=== PATIENT | female | born 1925 | race Caucasian/White ===

== ENCOUNTER 2017-01-31 09:44 | Inpatient (IN) | payer MEDICARE ==
[~2017-01-31] VITALS: Ht 165.1 cm; Wt 79.6 kg
[2017-01-31] MEDS ORDERED: SODIUM CHLORIDE 0.9% 1,000 ML IV ONE ×3 (10:07→12:35)
[2017-01-31] MEDS ORDERED: METO50TA82 PO (10:17)
[2017-01-31] MEDS ORDERED: FURO40TA6 PO (10:17)
[2017-01-31] MEDS ORDERED: VENL75TA PO (10:21)
[2017-01-31] MEDS ORDERED: [UNRECOGNIZED DRUG - CODE] PO (10:21)
[2017-01-31] MEDS ORDERED: CALC0.25 PO (10:21)
[2017-01-31] MEDS ORDERED: HYDR-3240 PO (10:21)
[2017-01-31] MEDS ORDERED: ASPI-496 PO (10:21)
[2017-01-31] MEDS ORDERED: AMIO200T42 PO (10:21)
[2017-01-31] MEDS ORDERED: DONE10TA14 PO (10:21)
[2017-01-31] MEDS ORDERED: SODIUM CHLORIDE FLUSH 10ML SYR IVF ONE ×2 (10:30→11:30)
[2017-01-31] MEDS ORDERED: CALC-72 PO (10:48)
[2017-01-31] MEDS ORDERED: FLUO15CR2 TP (10:48)
[2017-01-31] MEDS ORDERED: UBID100C11 PO (10:48)
[2017-01-31] MEDS ORDERED: MULT-717 PO (10:48)
[2017-01-31] MEDS ORDERED: MIRT15TA4 PO (10:48)
[2017-01-31] MEDS ORDERED: CYAN25009 PO (10:48)
[2017-01-31] MEDS ORDERED: OXYC-302 PO (10:48)
[2017-01-31] MEDS ORDERED: GLUC500T8 PO (10:48)
[2017-01-31 11:35] LABS: ASPARTATE AMINO TRANSFERASE 26 U/L (15-37); BLOOD UREA NITROGEN 32 mg/dL (7-18)
[2017-01-31] MEDS ORDERED: DEXTROSE 4 GM TAB.CHEW PO PRN (13:00)
[2017-01-31] MEDS ORDERED: GLUCAGON 1 MG IM PRN (13:00)
[2017-01-31] MEDS ORDERED: ONDANSETRON ODT 4 MG PO PRN (13:00)
[2017-01-31] MEDS ORDERED: ONDANSETRON 2MG/ML, 2ML IVPush PRN ×3 (13:00→22:00)
[2017-01-31] MEDS ORDERED: SODIUM CHLORIDE FLUSH 10ML SYR IVF PRN (13:00)
[2017-01-31] MEDS ORDERED: DEXTROSE 50%, 50ML SYRINGE IVPush PRN (13:00)
[2017-01-31] MEDS: HEPARIN 5,000 UNITS/ML, 1ML SQ SCH ×2 (13:00→21:00)
[2017-01-31] MEDS ORDERED: POLYETHYLENE GLYCOL 17 GM PACKET PO PRN (13:00)
[2017-01-31] MEDS ORDERED: DOCUSATE 100 MG CAPSULE PO PRN (13:00)
[2017-01-31] MEDS ORDERED: BISACODYL 10 MG SUPP PR PRN (13:00)
[2017-01-31] MEDS ORDERED: ONDANSETRON 2MG/ML, 2ML ONE ×2 (13:19→18:28)
[2017-01-31] MEDS ORDERED: MORPHINE SULFATE 4 MG/ML, 1ML ONE (13:19)
[2017-01-31] MEDS: morphine SULFATE 10 MG/ML, 1ML IVPush PRN ×3 (13:24→15:51)
[2017-01-31 14:17] VITALS: BP 146/78
[2017-01-31] MEDS ORDERED: MORPHINE SULFATE 4 MG/ML, 1ML IVPush ONE (16:00)
[2017-01-31] MEDS: INSULIN ASPART 100 UNITS/ML, PEN SQ-INSULIN SCH ×2 (16:00→21:00)
[2017-01-31] MEDS ORDERED: TRANEXAMIC ACID 100 MG/ML, 10ML ONE ×2 (18:14)
[2017-01-31] MEDS ORDERED: CEFAZOLIN 1,000 MG ONE (18:28)
[2017-01-31] MEDS ORDERED: PROPOFOL 10 MG/ML, 20ML ONE (18:28)
[2017-01-31] MEDS ORDERED: FENTANYL PF 250 MCG/5ML ONE (19:07)
[2017-01-31] MEDS ORDERED: BUPIVACAINE/PF-EPI 0.5% 1:200K ONE ×2 (19:46→20:42)
[2017-01-31] MEDS ORDERED: LIDOCAINE/PF 1%-EPI 1:200K, 30ML ONE ×2 (19:55→20:42)
[2017-01-31] MEDS ORDERED: hydrALAzine 20 MG/ML, 1ML IV PRN ×2 (20:00→22:00)
[2017-01-31] MEDS ORDERED: OXYcodone 5 MG/5 ML ORAL.SOL UDC PO PRN ×2 (20:00→22:00)
[2017-01-31] MEDS ORDERED: LABETALOL 5MG/ML, 20ML IV PRN ×2 (20:00→22:00)
[2017-01-31] MEDS ORDERED: FENTANYL PF 100 MCG/2ML IV PRN (20:00)
[2017-01-31] MEDS ORDERED: ACETAMINOPHEN 325 MG TABLET PO PRN ×2 (20:00→22:00)
[2017-01-31] MEDS ORDERED: HYDROmorphone 1 MG/ML, 1ML IV PRN (20:00)
[2017-01-31] MEDS ORDERED: ALBUMIN HUMAN 5% 500 ML ONE (20:32)
[2017-01-31] MEDS: EMOLLIENT TP SCH (21:00)
[2017-01-31] MEDS: FLUOCINONIDE TP SCH (21:00)
[2017-01-31] MEDS: OXYcodone/APAP 5/325MG TABLET PO SCH (21:00)
[2017-01-31] MEDS: SODIUM CHLORIDE FLUSH 3ML SYRINGE IVF SCH (21:00)
[2017-01-31] MEDS: SODIUM CHLORIDE FLUSH 10ML SYR IVF SCH (21:00)
[2017-01-31] MEDS: VENLAFAXINE 75MG TABLET PO SCH (21:00)
[2017-01-31] MEDS ORDERED: ACETAMINOPHEN 650 MG/20.3 ML UDC ONE (22:00)
[2017-01-31] MEDS ORDERED: HYDROmorphone 1 MG/ML, 1ML ONE (22:00)
[2017-01-31] MEDS ORDERED: FENTANYL PF 100 MCG/2ML ONE (22:00)
[2017-01-31] MEDS ORDERED: OXYcodone 5 MG/5 ML ORAL.SOL UDC ONE (22:00)
[2017-01-31] MEDS: FENTANYL PF 100 MCG/2ML IV PRN ×3 (22:30→23:10)
[2017-01-31] MEDS: HYDROmorphone 1 MG/ML, 1ML IV PRN ×2 (23:00→23:30)
[2017-02-01 01:40] LABS: PATH.CAST-FLAG NOT PRESENT; SPERM-FLAG NOT PRESENT; SRC-FLAG NOT PRESENT; XTAL-FLAG NOT PRESENT; YLC-FLAG NOT PRESENT
[2017-02-01 01:59] VITALS: BP 120/87
[2017-02-01] MEDS: CEFAZOLIN PMX 2GM/50ML 50 ML IVPB SCH ×2 (02:20→10:53)
[2017-02-01] MEDS: morphine SULFATE 10 MG/ML, 1ML IVPush PRN (02:33)
[2017-02-01 04:40] VITALS: BP 111/69
[2017-02-01 06:00] LABS: BLOOD UREA NITROGEN 27 mg/dL (7-18)
[2017-02-01 06:39] VITALS: BP 118/73
[2017-02-01] MEDS: HEPARIN 5,000 UNITS/ML, 1ML SQ SCH ×3 (06:53→23:15)
[2017-02-01] MEDS: [UNRECOGNIZED DRUG - OTHER] PO SCH (07:57)
[2017-02-01] MEDS: [UNRECOGNIZED DRUG - OTHER] PO SCH (07:57)
[2017-02-01] MEDS: DANAZOL PO SCH (07:57)
[2017-02-01] MEDS: OXYcodone/APAP 5/325MG TABLET PO SCH (07:57)
[2017-02-01] MEDS: LYCOPENE T PO SCH (07:57)
[2017-02-01] MEDS: MULTIVITS MIN PO SCH (07:57)
[2017-02-01] MEDS: VITAMIN D3 PO SCH (07:57)
[2017-02-01] MEDS: UBIDECARENONE 200 MG PO SCH (07:57)
[2017-02-01] MEDS: CALCIUM CARBONATE PO SCH (07:57)
[2017-02-01] MEDS: LUT PO SCH (07:57)
[2017-02-01] MEDS: ASPIRIN 81 MG TABLET EC PO SCH (08:02)
[2017-02-01] MEDS: FUROSEMIDE 40 MG TABLET PO SCH (08:02)
[2017-02-01] MEDS: VENLAFAXINE 75MG TABLET PO SCH ×2 (08:02→21:30)
[2017-02-01] MEDS: AMIODARONE 200 MG TABLET PO SCH (08:03)
[2017-02-01] MEDS: METOPROLOL TARTRATE 50 MG TABLET PO SCH (08:03)
[2017-02-01] MEDS: MIRTAZAPINE 15 MG TABLET PO SCH (08:03)
[2017-02-01] MEDS: CALCITRIOL 0.25 MCG CAPSULE PO SCH (08:04)
[2017-02-01] MEDS: INSULIN ASPART 100 UNITS/ML, PEN SQ-INSULIN SCH ×4 (08:45→21:35)
[2017-02-01] MEDS: SODIUM CHLORIDE FLUSH 10ML SYR IVF SCH ×2 (08:46→21:00)
[2017-02-01] MEDS: SODIUM CHLORIDE FLUSH 3ML SYRINGE IVF SCH ×2 (08:46→21:00)
[2017-02-01] MEDS ORDERED: DONEPEZIL HCL 10 MG PO SCH (09:00)
[2017-02-01 12:24] VITALS: BP 115/71
[2017-02-01] MEDS: OXYcodone/APAP 5/325MG TABLET PO PRN ×2 (14:00→23:15)
[2017-02-01 18:23] VITALS: BP 100/59
[2017-02-01] MEDS: EMOLLIENT TP SCH (21:00)
[2017-02-01] MEDS: FLUOCINONIDE TP SCH (21:00)
[2017-02-02 02:06] VITALS: BP 110/62
[2017-02-02] MEDS: HEPARIN 5,000 UNITS/ML, 1ML SQ SCH ×3 (06:18→23:10)
[2017-02-02] MEDS: INSULIN ASPART 100 UNITS/ML, PEN SQ-INSULIN SCH ×4 (06:21→21:45)
[2017-02-02 08:17] VITALS: BP 101/67
[2017-02-02] MEDS: MULTIVITS MIN PO SCH (08:20)
[2017-02-02] MEDS: [UNRECOGNIZED DRUG - OTHER] PO SCH (08:20)
[2017-02-02] MEDS: UBIDECARENONE 200 MG PO SCH (08:20)
[2017-02-02] MEDS: LYCOPENE T PO SCH (08:20)
[2017-02-02] MEDS: [UNRECOGNIZED DRUG - OTHER] PO SCH (08:20)
[2017-02-02] MEDS: LUT PO SCH (08:20)
[2017-02-02] MEDS: VITAMIN D3 PO SCH (08:20)
[2017-02-02] MEDS: DANAZOL PO SCH (08:20)
[2017-02-02] MEDS: CALCIUM CARBONATE PO SCH (08:20)
[2017-02-02] MEDS: ASPIRIN 81 MG TABLET EC PO SCH (08:22)
[2017-02-02] MEDS: FUROSEMIDE 40 MG TABLET PO SCH (08:22)
[2017-02-02] MEDS: VENLAFAXINE 75MG TABLET PO SCH ×2 (08:22→21:44)
[2017-02-02] MEDS: MIRTAZAPINE 15 MG TABLET PO SCH (08:23)
[2017-02-02] MEDS: METOPROLOL TARTRATE 50 MG TABLET PO SCH (08:23)
[2017-02-02] MEDS: AMIODARONE 200 MG TABLET PO SCH (08:23)
[2017-02-02] MEDS: CALCITRIOL 0.25 MCG CAPSULE PO SCH (08:23)
[2017-02-02] MEDS: SODIUM CHLORIDE FLUSH 10ML SYR IVF SCH ×2 (08:26→21:44)
[2017-02-02] MEDS: SODIUM CHLORIDE FLUSH 3ML SYRINGE IVF SCH ×2 (08:26→21:44)
[2017-02-02] MEDS: DONEPEZIL 10 MG TABLET PO SCH (09:34)
[2017-02-02 14:31] VITALS: BP 103/49
[2017-02-02] MEDS: OXYcodone/APAP 5/325MG TABLET PO PRN (17:05)
[2017-02-02 19:59] VITALS: BP 99/53
[2017-02-02] MEDS: FLUOCINONIDE TP SCH (21:00)
[2017-02-02] MEDS: EMOLLIENT TP SCH (21:00)
[2017-02-03 02:33] VITALS: BP 110/51
[2017-02-03] MEDS: INSULIN ASPART 100 UNITS/ML, PEN SQ-INSULIN SCH ×4 (06:33→21:00)
[2017-02-03 06:35] VITALS: BP 117/67
[2017-02-03] MEDS: HEPARIN 5,000 UNITS/ML, 1ML SQ SCH ×3 (07:08→23:54)
[2017-02-03] MEDS: MIRTAZAPINE 15 MG TABLET PO SCH (07:56)
[2017-02-03] MEDS: VENLAFAXINE 75MG TABLET PO SCH ×2 (07:56→21:52)
[2017-02-03] MEDS: CALCITRIOL 0.25 MCG CAPSULE PO SCH (07:56)
[2017-02-03] MEDS: FUROSEMIDE 40 MG TABLET PO SCH (07:56)
[2017-02-03] MEDS: ASPIRIN 81 MG TABLET EC PO SCH (07:56)
[2017-02-03] MEDS: AMIODARONE 200 MG TABLET PO SCH (07:57)
[2017-02-03] MEDS: METOPROLOL TARTRATE 50 MG TABLET PO SCH (07:57)
[2017-02-03] MEDS: SODIUM CHLORIDE FLUSH 3ML SYRINGE IVF SCH ×2 (07:59→21:00)
[2017-02-03] MEDS: SODIUM CHLORIDE FLUSH 10ML SYR IVF SCH ×2 (07:59→21:52)
[2017-02-03] MEDS: DANAZOL PO SCH (08:03)
[2017-02-03] MEDS: VITAMIN D3 PO SCH (08:03)
[2017-02-03] MEDS: LUT PO SCH (08:03)
[2017-02-03] MEDS: MULTIVITS MIN PO SCH (08:03)
[2017-02-03] MEDS: LYCOPENE T PO SCH (08:03)
[2017-02-03] MEDS: CALCIUM CARBONATE PO SCH (08:03)
[2017-02-03] MEDS: UBIDECARENONE 200 MG PO SCH (08:03)
[2017-02-03] MEDS: [UNRECOGNIZED DRUG - OTHER] PO SCH (08:03)
[2017-02-03] MEDS: [UNRECOGNIZED DRUG - OTHER] PO SCH (08:03)
[2017-02-03] MEDS: DONEPEZIL 10 MG TABLET PO SCH (10:46)
[2017-02-03] MEDS: OXYcodone/APAP 5/325MG TABLET PO PRN (11:03)
[2017-02-03 14:08] VITALS: BP 100/62
[2017-02-03 18:30] VITALS: BP 114/67
[2017-02-03] MEDS: FLUOCINONIDE TP SCH (21:00)
[2017-02-03] MEDS: EMOLLIENT TP SCH (21:00)
[2017-02-04] VITALS (9 sets, daily range): BP systolic 105–154; BP diastolic 43–78
[2017-02-04] MEDS: INSULIN ASPART 100 UNITS/ML, PEN SQ-INSULIN SCH ×4 (06:35→21:00)
[2017-02-04] MEDS: HEPARIN 5,000 UNITS/ML, 1ML SQ SCH ×3 (06:35→22:07)
[2017-02-04] MEDS: [UNRECOGNIZED DRUG - OTHER] PO SCH (08:26)
[2017-02-04] MEDS: LYCOPENE T PO SCH (08:26)
[2017-02-04] MEDS: CALCIUM CARBONATE PO SCH (08:26)
[2017-02-04] MEDS: DANAZOL PO SCH (08:26)
[2017-02-04] MEDS: LUT PO SCH (08:26)
[2017-02-04] MEDS: MULTIVITS MIN PO SCH (08:26)
[2017-02-04] MEDS: [UNRECOGNIZED DRUG - OTHER] PO SCH (08:26)
[2017-02-04] MEDS: VITAMIN D3 PO SCH (08:26)
[2017-02-04] MEDS: UBIDECARENONE 200 MG PO SCH (08:27)
[2017-02-04] MEDS: CALCITRIOL 0.25 MCG CAPSULE PO SCH (08:35)
[2017-02-04] MEDS: FUROSEMIDE 40 MG TABLET PO SCH (08:36)
[2017-02-04] MEDS: MIRTAZAPINE 15 MG TABLET PO SCH (08:36)
[2017-02-04] MEDS: VENLAFAXINE 75MG TABLET PO SCH ×2 (08:36→20:59)
[2017-02-04] MEDS: ASPIRIN 81 MG TABLET EC PO SCH (08:36)
[2017-02-04] MEDS: AMIODARONE 200 MG TABLET PO SCH (08:36)
[2017-02-04] MEDS: METOPROLOL TARTRATE 50 MG TABLET PO SCH (08:36)
[2017-02-04] MEDS: SODIUM CHLORIDE FLUSH 10ML SYR IVF SCH ×2 (08:37→20:59)
[2017-02-04] MEDS: SODIUM CHLORIDE FLUSH 3ML SYRINGE IVF SCH ×2 (08:37→21:00)
[2017-02-04] MEDS ORDERED: DONEPEZIL 10 MG TABLET PO SCH (08:45)
[2017-02-04] MEDS: DONEPEZIL 10 MG TABLET PO SCH (10:53)
[2017-02-04] MEDS: EMOLLIENT TP SCH (21:00)
[2017-02-04] MEDS: FLUOCINONIDE TP SCH (21:00)
[2017-02-05 03:25] VITALS: BP 148/64
[2017-02-05] MEDS: HEPARIN 5,000 UNITS/ML, 1ML SQ SCH (06:24)
[2017-02-05] MEDS: OXYcodone/APAP 5/325MG TABLET PO PRN ×2 (06:28→10:58)
[2017-02-05 07:02] VITALS: BP 149/77
[2017-02-05] MEDS: INSULIN ASPART 100 UNITS/ML, PEN SQ-INSULIN SCH ×2 (07:19→11:01)
[2017-02-05] MEDS: CALCIUM CARBONATE PO SCH (08:16)
[2017-02-05] MEDS: [UNRECOGNIZED DRUG - OTHER] PO SCH (08:16)
[2017-02-05] MEDS: VITAMIN D3 PO SCH (08:16)
[2017-02-05] MEDS: MULTIVITS MIN PO SCH (08:17)
[2017-02-05] MEDS: DANAZOL PO SCH (08:17)
[2017-02-05] MEDS: LUT PO SCH (08:17)
[2017-02-05] MEDS: LYCOPENE T PO SCH (08:17)
[2017-02-05] MEDS: [UNRECOGNIZED DRUG - OTHER] PO SCH (08:17)
[2017-02-05] MEDS: UBIDECARENONE 200 MG PO SCH (08:17)
[2017-02-05] MEDS: SODIUM CHLORIDE FLUSH 3ML SYRINGE IVF SCH (08:18)
[2017-02-05] MEDS: VENLAFAXINE 75MG TABLET PO SCH (08:18)
[2017-02-05] MEDS: SODIUM CHLORIDE FLUSH 10ML SYR IVF SCH (08:18)
[2017-02-05] MEDS: DONEPEZIL 10 MG TABLET PO SCH (08:19)
[2017-02-05] MEDS: MIRTAZAPINE 15 MG TABLET PO SCH (08:19)
[2017-02-05] MEDS: CALCITRIOL 0.25 MCG CAPSULE PO SCH (08:19)
[2017-02-05] MEDS: FUROSEMIDE 40 MG TABLET PO SCH (08:19)
[2017-02-05] MEDS: ASPIRIN 81 MG TABLET EC PO SCH (08:19)
[2017-02-05] MEDS: AMIODARONE 200 MG TABLET PO SCH (08:21)
[2017-02-05] MEDS: METOPROLOL TARTRATE 50 MG TABLET PO SCH (08:22)
[2017-02-05] MEDS ORDERED: DONEPEZIL 10 MG TABLET PO SCH (09:00)
[2017-02-05] MEDS ORDERED: POLY17PO5 PO (09:36)
[2017-02-05] MEDS ORDERED: ONDA4TAB7 PO (09:36)
[2017-02-05] MEDS ORDERED: OXYC5TAB3 PO (09:36)
[2017-02-05] MEDS ORDERED: ASPI-650 PO (10:06)
[2017-02-05] MEDS ORDERED: ASPIRIN 325 MG TABLET PO ONE (10:10)
[2017-02-06] MEDS ORDERED: ASPIRIN 325 MG TABLET PO SCH (06:00)
== END 2017-02-05 11:19 | DRG 470 ==
LOC: ED 12:34 → EDIP 12:39 → 4NOR 13:55
PROVIDERS: ADMIT Internal Medicine; ATTEND Internal Medicine
PROC: 30233N1 Transfusion of Nonautologous Red Blood Cells into Peripheral Vein, Percutaneous Approach (ICD-10-PCS; 2017-01-31)
PROC: 0SRR019 Replacement of Right Hip Joint, Femoral Surface with Metal Synthetic Substitute, Cemented, Open Approach (ICD-10-PCS; principal; 2017-01-31 18:30)
DX: S72.001A Fracture of unspecified part of neck of right femur, initial encounter for closed fracture (principal); N18.4 Chronic kidney disease, stage 4 (severe); D62 Acute posthemorrhagic anemia; I13.0 Hypertensive heart and chronic kidney disease with heart failure and stage 1 through stage 4 chronic kidney disease, or unspecified chronic kidney disease; I50.40 Unspecified combined systolic (congestive) and diastolic (congestive) heart failure; D72.829 Elevated white blood cell count, unspecified; E11.22 Type 2 diabetes mellitus with diabetic chronic kidney disease; F03.90 Unspecified dementia, unspecified severity, without behavioral disturbance, psychotic disturbance, mood disturbance, and anxiety; I48.0 Paroxysmal atrial fibrillation; I44.7 Left bundle-branch block, unspecified; M32.9 Systemic lupus erythematosus, unspecified; M79.7 Fibromyalgia; W01.0XXA Fall on same level from slipping, tripping and stumbling without subsequent striking against object, initial encounter; Z96.641 Presence of right artificial hip joint; F32.9 Major depressive disorder, single episode, unspecified; M19.90 Unspecified osteoarthritis, unspecified site; Y92.89 Other specified places as the place of occurrence of the external cause; Z83.3 Family history of diabetes mellitus; Z87.891 Personal history of nicotine dependence; Z90.81 Acquired absence of spleen; Z90.710 Acquired absence of both cervix and uterus
CPT/HCPCS: 36415; 71010; 72190; 80048; 80053; 81001; 82962; 85014; 85018; 85025; 85610; 85730; 86850; 86900; 86923; 87086; 93005; 96361; 96374; C1713; J0690; J1170; J1644; J2405; J2704; J3010; J3490; P9045; C1762; C1776; J2270; J7030; P9016